=== PATIENT | female | born 1965 | race Caucasian/White ===

== ENCOUNTER → 2022-06-15 | Outpatient (CLI) | payer MEDICAID, SELFPAY ==
[2022-06-15 11:29] LABS: Amphetamine Urine VISTA NEGATIVE (<1000 ng/mL); Barbiturate Urine VISTA NEGATIVE (< 200 ng/mL); Benzodiazepine Urine VISTA NEGATIVE (< 200 ng/mL); Cocaine Urine VISTA NEGATIVE (< 300 ng/mL); Ecstacy Urine VISTA POSITIVE (< 500 ng/mL); Methadone Urine VISTA NEGATIVE (< 300 ng/mL); PCP Urine VISTA NEGATIVE (< 25 ng/mL); THC Urine VISTA NEGATIVE (< 50 ng/mL); Vista UDS pH Range 5
== END | disposition home or self-care (01) ==
LOC: LAB 09:50
PROVIDERS: Visit Provider Anesthesiology Pain Medicine
DX: F11.20 Opioid dependence, uncomplicated (principal)
CPT/HCPCS: 80307

== ENCOUNTER 2022-09-02 13:30 | Outpatient (RCR) | payer MEDICAID, SELFPAY ==
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
--- NOTE | 2022-10-12 14:12 | HP.PT.NRP ---
VLADISLAV SANTIZO was seen in my office for initial evaluation on 08/24/22. The following Plan of Care was established for this patient: Initial Frequency: 2-3x /Week Initial Duration: 4-6 Weeks Patient/Client Instruction: Educate patient on: Condition, Plan of Care, Risk Factors For the Purpose of:: To improve self management Therapeutic Exercise to Include: Strength training, Body mechanics, Postural training, Flexibilty training, Neuromotor development, In an aquatic setting, Dynamic Lumbar Stabilization For the Purpose of:: To decrease pain, To increase ROM, To improve muscle performance and motor function, To increase tolerance to activity/condition/position, To improve ability of physical actions for home/community/work/leisure This patient was last seen in our office . Pertinent comments regarding their Physical therapy will appear below: This patient has not returned to Physical Therapy and is appropriate to return to MD for further follow-up as needed. At this point I will be discontinuing this patient from physical therapy. I would be happy to see this patient again in the future if found appropriate by the physician. Thank you! Snow Potter, PT, Cert MDT Balance/Gait/Functional tests - Balance/Special Test Scores Oswestry Low Back Score: 29
== END 2022-09-02 19:00 | disposition home or self-care (01) ==
LOC: PT 13:30
PROVIDERS: Referring Provider Anesthesiology Pain Medicine; Visit Provider Anesthesiology Pain Medicine
DX: M47.816 Spondylosis without myelopathy or radiculopathy, lumbar region (principal); G89.29 Other chronic pain; M54.6 Pain in thoracic spine
CPT/HCPCS: 97113; 97162

== ENCOUNTER 2023-05-11 21:13 | Emergency (ER) | payer MEDICARE, MEDICAID, SELFPAY ==
[2023-05-11 21:16] VITALS: BP 141/99; PULSE 79; RESP 18; TEMP 36.1; O2SAT 99; BMI 25.2
--- NOTE | 2023-05-11 21:57 | EX.ED.DYSGE1 ---
HPI History of Present Illness Chief Complaint: Hypertension Informant: patient Narrative Narrative: Patient presents with concern for high blood pressure. She evidently was at her GYNs office the other day. Blood pressure is up. She was told she should come to the emergency department. It was evidently about 185 systolic. Blood pressures about 185 at home again this evening. She states when her blood pressure is up she feels like a pressure feeling in her neck and head but is not pain. She did take her lisinopril tonight. Blood pressure is now coming down. She normally takes her lisinopril in the evening. She is also concerned that she may be having complications from her multiple medications but she is on much fewer meds now than she was in the past. Patient has a history of migraines and muscle and back pains. She also has history of high blood pressure. Patient takes pregabalin, baclofen, propanolol, lisinopril 10 mg, Nurtec and rizatriptan for migraines, vitamins PFSH PFS Medical History (Updated 05/11/23 @ 22:[address] Rikcy Byrd MD) Hypertension Migraines Allergy/AdvReac Type Severity Reaction Status Date / Time latex Allergy Other Verified 05/11/23 21:15 lamotrigine AdvReac Other Verified 05/11/23 21:15 [id number] Reductase AdvReac Nausea Verified 05/11/23 21:15 Inhibitor SSRI AdvReac Other Uncoded 05/11/23 21:15 Social History Smoking Status: Former smoker ROS ROS ED Constitutional Constitutional ED: Denies chills, fever(s) or sweats Eyes Eyes: Denies blurry vision, change in vision or diplopia ENT ENT ED: Denies ear pain or sore throat Cardiovascular Cardiovascular: Denies chest pain or palpitations Respiratory/Chest Respiratory/Chest: Denies cough or dyspnea Gastrointestinal Gastrointestinal: Denies nausea or vomiting Genitourinary Genitourinary ED: Denies dysuria or hematuria Musculoskeletal Musculoskeletal: Denies myalgias Integumentary Denies rash Neurologic Neurologic: Denies headache(s), paresthesias or weakness Hematologic/Lymphatic Hematologic/Lymphatic: Denies easy bleeding or easy bruising Allergic/Immunologic Allergic/Immunologic ED: Denies urticaria EXAM Physical Exam Narrative Exam Narrative: CONSTITUTIONAL: Patient is nontoxic in appearance. The patient looks comfortable. Work of breathing looks normal. HEENT: No notable trauma. Mucous membranes moist. No sinus tenderness. No indication of pain with swallowing. EYES: No conjunctival injection. No proptosis. No photophobia. Range of motion is normal. NECK:No JVD. No stridor. CARDIOVASCULAR: Regular rate. Regular rhythm. No notable murmur. No JVD. No muffled tones. Peripheral pulses are normal and equal RESPIRATORY: No respiratory distress. Breathing is unlabored. No wheezes. No rhonchi. No rales. No pain with a deep breath. GASTROINTESTINAL: Not distended. Bowel sounds are normal. No tenderness. GENITOURINARY: No tenderness over the bladder. No CVA tenderness. MUSCULOSKELETAL: Atraumatic. No peripheral edema. NEUROLOGICAL: Patient is alert and appropriate. No focal deficit noted. SKIN: No noted rashes. No diaphoresis. PSYCHIATRIC: Patient is calm. Mood is appropriate. Const Vital Signs: 05/11/23 21:16 05/11/23 22:10 Temperature 96.9 F L Temperature Source Temporal Pulse Rate 79 78 Respiratory Rate 18 16 Blood Pressure 141/99 H 131/91 H Blood Pressure Mean 113 104 Pulse Ox 99 Oxygen Delivery Method Room Air MDM MDM MDM Narrative Medical decision making narrative: Patient had blood pressure rechecked here. She was 141/99 when she came in. While I was in the room she was 135/92 then 127/90 then 131/91. I do not feel that any of these blood pressure readings require acute treatment. We did talk about timing of lisinopril. We explained that this medicine generally has blood pressure effects that last a little bit less than 24 hours. Since she takes her meds in the evening she likely will have a rise of blood pressure before she takes the meds. She admits that she has been getting that. She can take the med in the morning. That way before she wakes up her blood pressure may be up a little bit but normally blood pressure is down at that time so her lisinopril should be more effective throughout the day. She was encouraged to see her primary physician for overall review and management of medicines. I do not think she needs a change in dose now. She did request a physician closer to this area as she has moved here. I do not think blood work is needed as she has essentially asymptomatic hypertension but her blood pressure levels are not notably elevated now. I do not think any imaging would be effective or needed. Discharge Plan Triage Chief Complaint: Hypertension ED Provider: Ricky Byrd Dx/Rx/DC Orders Clinical Impression: Elevated blood pressure reading Instructions: ED High Blood Pressure Hypertension Primary Care Provider: RICKY SANDOVAL Referrals: Rafy Weaver MD [Med Staff - Active Staff] - 1 Week [facility] Doctor,Out of [Non-Staff] - Disposition Disposition: Home, Self Care Discharge Date/Time: 05/11/23 22:11
[2023-05-11 22:10] VITALS: BP 131/91; PULSE 78; RESP 16
== END 2023-05-11 22:11 | disposition home or self-care (01) ==
LOC: ED 22:05
PROVIDERS: Emergency Provider Emergency Medicine; Visit Provider Emergency Medicine
DX: G43.909 Migraine, unspecified, not intractable, without status migrainosus (principal); I10 Essential (primary) hypertension; Z79.899 Other long term (current) drug therapy; Z87.891 Personal history of nicotine dependence
CPT/HCPCS: 99282

== ENCOUNTER → 2023-12-10 | Outpatient (CLI) | payer MEDICARE, MEDICAID, SELFPAY ==
--- NOTE | 2023-12-10 13:44 | US_ITS ---
STUDY: ULTRASOUND BREAST - LEFT REASON FOR EXAM: Female, 58 years old. Palpable lump at the level of the left scar tissue. TECHNIQUE: Axial and longitudinal images of the LEFT breast were performed with a high resolution ultrasound transducer. # OF IMAGES: 14 COMPARISON: Comparison is made with prior mammogram done earlier today. FINDINGS: LEFT Breast: The upper inner quadrant of the breast was examined with ultrasound. There is heterogeneous fibroglandular tissue. No sonographic abnormality is seen. US/Breast Limited Unilateral IMPRESSION: No sonographic abnormality is seen. ASSESSMENT CATEGORY: BIRADS Category 2: Benign. A letter regarding these results will be sent to the patient by the facility within 30 days. Electronically Signed: Bruno Kellogg MD at 15:22 EST ,
--- NOTE | 2023-12-10 13:44 | BI_ITS ---
MAMMOGRAPHY - BILATERAL DIAGNOSTIC REASON FOR EXAM: Female, 58 years old. Palpable lump in the upper outer aspect of the left breast. PERTINENT HISTORY: Aunt with breast cancer. Remote left excisional breast biopsy. TECHNIQUE: Digital bilateral breast rl (3D mammographic acquisition) in the CC and MLO projections. 2-D mediolateral oblique (MLO) and craniocaudad (CC) views of both breasts were obtained. CAD: Full Field Digital Mammography with Computer Added Detection was performed. COMPARISON: Comparison is made with prior study dated May 08, 2016. FINDINGS: Breast Composition: The breasts are heterogeneously dense, which may obscure small masses. There are no dominant masses or suspicious calcifications. Stable small bilateral axillary lymph nodes. No other significant abnormalities are identified. There has been no significant change since the prior study. BI/DIAG MAMM W/CAD, BILAT IMPRESSION: Stable bilateral diagnostic mammogram. With the patient''s history of a palpable lump in the upper-outer aspect of the left breast, correlation with ultrasound is recommended. ASSESSMENT CATEGORY: BIRADS Category 0: Incomplete. Need additional imaging evaluation. A letter regarding these results will be sent to the patient by the facility within 30 days. Approximately 10% of breast cancers are not detected by mammography. A normal mammogram should not delay biopsy of a clinically suspicious abnormality. Electronically Signed: Bruno Kellogg MD at 14:26 EST ,
== END | disposition home or self-care (01) ==
DX: N63.21 Unspecified lump in the left breast, upper outer quadrant (principal)
CPT/HCPCS: 76642; 77062; 77066; G0279

== ENCOUNTER 2024-12-24 13:45 | Emergency (ER) | payer MEDICARE, MEDICAID, SELFPAY ==
[2024-12-24 13:47] VITALS: BP 103/75; PULSE 97; RESP 20; TEMP 35.7; O2SAT 98; BMI 22.8
--- NOTE | 2024-12-24 14:40 | RAD_ITS ---
PROCEDURE: CHEST PA AND LATERAL REASON FOR EXAM: Cough TECHNIQUE: Frontal and lateral views of the chest. COMPARISON: None. FINDINGS: The heart size is normal. The mediastinal contour is unremarkable. The lungs are clear. Vertebroplasty changes. RAD/Chest PA and Lateral IMPRESSION: NEGATIVE CHEST Reading Location: [facility]
--- NOTE | 2024-12-24 14:41 | EX.ED.DYSGE1 ---
HPI <SHEEBA Guzman - Last Filed: 12/24/24 16:53> History of Present Illness Chief Complaint: Cold Sx Narrative Narrative: Patient presenting today due to an episode of hemoptysis that occurred this morning. She reports that 3 weeks ago she was diagnosed with influenza A. She has had a productive cough since with green-colored sputum. Today, she coughed and noticed blood in her sputum prompting her to come in for evaluation. She reports a previous history of tobacco use but has not smoked in over 20 years. She reports pain to her bilateral pectoral muscles with coughing, she reports that this is improved with rest. She denies fevers, chills, and shortness of breath. She denies history of blood clots or recent surgery/travel/immobilization. She is not on any blood thinners. PFSH <SHEEBA Guzman - Last Filed: 12/24/24 16:53> PFSH Medical History Migraines Hypertension Allergy/AdvReac Type Severity Reaction Status Date / Time latex Allergy Other Verified 12/24/24 13:49 lamotrigine AdvReac Other Verified 12/24/24 13:49 [id number]-[id number] Reductase AdvReac Nausea Verified 12/24/24 13:49 Inhibitor SSRI AdvReac Other Uncoded 05/11/23 21:15 Social History Smoking Status: Former smoker ROS <SHEEBA Guzman - Last Filed: 12/24/24 16:53> ROS ED Constitutional Constitutional ED: Denies chills or fever(s) Cardiovascular Cardiovascular: Denies chest pain or palpitations Respiratory/Chest Respiratory/Chest: Reports cough and sputum; Denies dyspnea, tachypnea or wheezing Gastrointestinal Gastrointestinal: Denies abdominal pain, nausea or vomiting Musculoskeletal Musculoskeletal: Denies arthralgias or myalgias Integumentary Denies rash Neurologic Neurologic: Denies weakness EXAM <SHEEBA Guzman - Last Filed: 12/24/24 16:53> Physical Exam Const Vital Signs: 12/24/24 13:47 12/24/24 14:49 12/24/24 14:49 Temperature 96.3 F L 96.3 F L Temperature Source Temporal Temporal Pulse Rate 97 97 Respiratory Rate 20 H 20 H Respiratory Effort Normal Respiratory Pattern Normal Blood Pressure 103/75 103/75 Blood Pressure Mean 84 84 Pulse Ox 98 98 Oxygen Delivery Method Room Air Room Air 12/24/24 15:44 Temperature Temperature Source Pulse Rate 71 Respiratory Rate 18 Respiratory Effort Respiratory Pattern Blood Pressure Blood Pressure Mean Pulse Ox 98 Oxygen Delivery Method Room Air Positive well nourished, well developed and no apparent distress General Appearance ED: well developed HEENT Reports normocephalic and head/scalp atraumatic Mouth ED: Yes moist mucous membranes normal Eyes PERRL and EOMs intact bilaterally Neck full ROM and supple Chest Wall inspection of chest normal Chest Narrative: Tenderness to the bilateral pectoral muscles. No overlying rash or bruising. Resp normal respiratory effort and clear to auscultation bilaterally Cardio regular rate and regular rhythm GI soft to palpation, non-tender, non-distended and no masses Back/Spine normal ROM and normal to inspection Extremity normal to inspection and full ROM Neuro oriented x3, CN's II-XII intact bilaterally, moves all extremities, no focal motor deficits and no sensory deficits noted Sensorium / Orientation: awake and alert Psych mental status grossly normal and thought process normal Skin no rashes or lesions noted and no wounds <Dr. Oswaldo Noland MD - Last Filed: 12/24/24 16:40> Physical Exam Const Vital Signs: 12/24/24 13:47 12/24/24 14:49 12/24/24 14:49 Temperature 96.3 F L 96.3 F L Temperature Source Temporal Temporal Pulse Rate 97 97 Respiratory Rate 20 H 20 H Respiratory Effort Normal Respiratory Pattern Normal Blood Pressure 103/75 103/75 Blood Pressure Mean 84 84 Pulse Ox 98 98 Oxygen Delivery Method Room Air Room Air 12/24/24 15:44 Temperature Temperature Source Pulse Rate 71 Respiratory Rate 18 Respiratory Effort Respiratory Pattern Blood Pressure Blood Pressure Mean Pulse Ox 98 Oxygen Delivery Method Room Air MDM <SEHEBA Guzman - Last Filed: 12/24/24 16:53> [facility] Narrative Medical decision making narrative: Patient presenting due to an episode of hemoptysis that occurred this afternoon. She has been coughing for 3 weeks after being diagnosed with influenza A. No history of blood clots or significant risk factors. Oxygen saturation 98% on room air. She is not short of breath. She is not complaining of chest pain. She does have chest wall pain to her pectoral muscles with coughing that is improved with rest and reproducible to palpation. Chest x-ray was obtained and is negative for infiltrate another cardiopulmonary abnormality. She already was given a course of antibiotics and steroids, I do not feel further antibiotics are indicated. She has a low Wells score, low suspicion for PE. Recommended that she follow-up with her PCP in the next 5 to 7 days. Strict return instructions were discussed if she has any further or worsening hemoptysis. She will be discharged home in stable condition. I have personally performed a face to face assessment of the patient and have reviewed the ANSLEY Note. I performed a substantive portion of the visit including all aspects of the following. My araiza findings include: History is [59-year-old female history of influenza 2 to 3 weeks ago. Has had persistent cough. No chest pain. Previously was treated with antibiotics.] Exam is [well-appearing 59-year-old female. Vital signs stable afebrile. Pulse ox 90% on room air no hypoxia. No respiratory distress. H EENT exam pupils round react to light. Moist mucous membranes. Neck nontender no JVD. No lymphadenopathy. Lungs clear to auscultation bilaterally. No rales rhonchi or wheezing. Equal symmetric. Good breath volume. Heart regular rhythm rate about 70 no murmur. Chest wall ribs nontender. Abdomen soft nontender. Moving all 4 extremities. Calves nontender without edema or cords. Neurologically she is awake and alert no focal motor deficits. Back nontender.] Medical Decision Making [59-year-old female recent influenza with recurrent cough. Chest x-ray is negative.] Other additions or changes: [Discussion with patient and family they are comfortable being discharged home. She is already been on antibiotics and steroids. She is not wheezing. She does not need another antibiotic they are comfortable the plan] Radiography X-Ray: Read by ED Physician Diagnostic Testing: Clinical Impression(s) from Imaging Studies Chest X-Ray 12/24/24 14:40 IMPRESSION: NEGATIVE CHEST Reading Location: [facility] <Dr. Oswaldo Noland MD - Last Filed: 12/24/24 16:40> [facility] Narrative Medical decision making narrative: Patient presenting due to an episode of hemoptysis that occurred this afternoon. She has been coughing for 3 weeks after being diagnosed with influenza A. No history of blood clots or significant risk factors. Oxygen saturation 98% on room air. She is not short of breath. She is not complaining of chest pain. She does have chest wall pain to her pectoral muscles with coughing that is improved with rest and reproducible to palpation. I have personally performed a face to face assessment of the patient and have reviewed the ANS[facility] Note. I performed a substantive portion of the visit including all aspects of the following. My araiza findings include: History is [59-year-old female history of influenza 2 to 3 weeks ago. Has had persistent cough. No chest pain. Previously was treated with antibiotics.] Exam is [well-appearing 59-year-old female. Vital signs stable afebrile. Pulse ox 90% on room air no hypoxia. No respiratory distress. H EENT exam pupils round react to light. Moist mucous membranes. Neck nontender no JVD. No lymphadenopathy. Lungs clear to auscultation bilaterally. No rales rhonchi or wheezing. Equal symmetric. Good breath volume. Heart regular rhythm rate about 70 no murmur. Chest wall ribs nontender. Abdomen soft nontender. Moving all 4 extremities. Calves nontender without edema or cords. Neurologically she is awake and alert no focal motor deficits. Back nontender.] Medical Decision Making [59-year-old female recent influenza with recurrent cough. Chest x-ray is negative.] Other additions or changes: [Discussion with patient and family they are comfortable being discharged home. She is already been on antibiotics and steroids. She is not wheezing. She does not need another antibiotic they are comfortable the plan] History & Record Review Discussion w/independent historian: Patient Radiography Chest X-Ray - ED: 2 View, Read by ED Physician, Heart, Lungs, Mediastinum, Bony Structures, No Acute Disease and Chronic Changes Diagnostic Testing: Clinical Impression(s) from Imaging Studies Chest X-Ray 12/24/24 14:40 IMPRESSION: NEGATIVE CHEST Reading Location: [facility] Chest x-ray, 2 views, AP and lateral, interpreted myself and radiology shows no acute abnormality. Chronic changes. Prior thoracic vertebroplasty. No pneumonia. No effusion. Discharge Plan Triage Chief Complaint: Cold Sx ED Midlevel Provider: Paris Donaldson ED Provider: Oswaldo Noland Dx/Rx/DC Orders Clinical Impression: Viral URI Instructions: ED Hemoptysis, ED URI, Viral, No Abx (Adult) Primary Care Provider: RICKY SANDOVAL MD Referrals: NOT,DEFINED [Non-Staff] - Activity Restrictions/Additional Instructions: Please return for any worsening of your symptoms. Follow-up with your PCP in the next 5 to 7 days. Print Language: Frisian Disposition Disposition: Home, Self Care Discharge Date/Time: 12/24/24 16:49
[2024-12-24 14:49] VITALS: BP 103/75; PULSE 97; RESP 20; TEMP 35.7; O2SAT 98
[2024-12-24 15:44] VITALS: PULSE 71; RESP 18; O2SAT 98
== END 2024-12-24 16:49 | disposition home or self-care (01) ==
PROVIDERS: Emergency Provider Emergency Medicine; Visit Provider Emergency Medicine
DX: J06.9 Acute upper respiratory infection, unspecified (principal); R04.2 Hemoptysis; I10 Essential (primary) hypertension; Z87.891 Personal history of nicotine dependence
CPT/HCPCS: 71046; 99282

== ENCOUNTER 2025-01-19 14:42 | Emergency (ER) | payer MEDICARE, MEDICAID, SELFPAY ==
[2025-01-19 14:43] VITALS: BP 123/84; PULSE 81; RESP 15; TEMP 36.4; O2SAT 100; BMI 23.3
[2025-01-19 14:46] VITALS: BP 128/84; PULSE 81; RESP 15; TEMP 36.4; O2SAT 100
--- NOTE | 2025-01-19 15:58 | US_ITS ---
PROCEDURE: TRANSVAGINAL NON- REASON FOR EXAM: postmenopausal vag bleeding TECHNIQUE: Grayscale and color doppler transvaginal pelvic ultrasound was performed. COMPARISON: None FINDINGS: Uterus: 7.2 x 3.4 x 2.6 cm, Anteverted. Heterogeneous myometrium with scattered suspected calcifications which could be vascular. Endometrium: 4-6 mm. No focal lesions identified. Cervix: Unremarkable. Right ovary: Not visualized. Left ovary: Not visualized. Free fluid: None visualized. Other: None. US/Transvaginal Non- IMPRESSION: 1. Mild endometrial thickening for a postmenopausal female in the setting of po stmenopausal bleeding. Recommend outpatient OBGYN consultation and tissue sampling to exclude neoplasia. 2. Nonvisualized bilateral ovaries. 3. Additional description as above. Reading Location: [id number]
[2025-01-19 16:28] LABS: Absolute Lymphocyte Count 1.88 X10^3/uL (0.83-4.51); Absolute Neutrophil Count 7.7 X10^3/uL (2.0-7.7); Basophil# 0.05 X10^3/uL; Basophil% 0.5 % (0-1); Eosinophil# 0.19 X10^3/uL; Eosinophils% 1.8 % (0-5); Hematocrit 43.6 % (37-47); Hemoglobin 14.6 g/dL (12.0-15.0); Lymphocyte # 1.88 X10^3/ul (0.83-4.51); Lymphocyte % 17.9 % (19-41); Mean Corp Hgb Conc 33.5 g/dL (32-36); Mean Corpuscular Hgb 30.2 pg (27.0-32.0); Mean Corpuscular Volume 90.3 fL (81-99); Mean Platelet Vol. 10.4 fl (6.2-12.0); Monocyte# 0.65 X10^3/uL; Monocyte% 6.2 % (0-10); NRBC Flagged by Analyzer 0.2 % (0-5); Neutrophil # 7.68 X10^3/uL (2.7-7.7); Neutrophil % 73.1 % (47-70); Platelet Count 265 K/mm3 (150-450); RBC Distribution Width SD 42.6 fl (35.1-43.9); Red Blood Count 4.83 M/mm3 (4.2-5.4); White Blood Count 10.5 K/mm3 (4.4-11.0)
[2025-01-19 16:43] VITALS: BP 118/89; PULSE 78; RESP 16; O2SAT 98
--- NOTE | 2025-01-19 17:34 | EDS_ITS ---
HPI HPI - Female History of Present Illness Chief Complaint: Vag Bleeding Narrative Narrative: Vaginal spotting for the past week and reports seem to have bleeding similar to a period today. She is postmenopausal 10 years. She states she has seen Dr. Min. She is a 3 to 4 years lower pelvic pain. Denies history of ovarian cysts or fibroids. She been dealing with recent infections. Got over influenza and bronchitis. Send multiple UTIs. Complaining urine frequency and suprapubic discomfort. She thought she had blood in her urine. She was on antibiotics a week ago just went back to express care today and placed back on antibiotics. She states culture grew out Klebsiella. Reviewed her phone culture from 2 days ago with Klebsiella however noted tended less than 50,000. Denies dysuria. Denies fevers or back pain. [facility] Medical History Migraines Hypertension Allergy/AdvReac Type Severity Reaction Status Date / Time latex Allergy Other Verified 12/24/24 13:49 lamotrigine AdvReac Other Verified 12/24/24 13:49 [id number] Reductase AdvReac Nausea Verified 12/24/24 13:49 Inhibitor SSRI AdvReac Other Uncoded 05/11/23 21:15 Social History household members: spouse housing: house Smoking Status: Former smoker ROS ROS ED Constitutional Constitutional ED: Denies chills, fever(s) or sweats ENT ENT ED: Denies sore throat Cardiovascular Cardiovascular: Denies chest pain, leg edema, palpitations or racing heartbeat Respiratory/Chest Respiratory/Chest: Denies cough, dyspnea or dyspnea on exertion Gastrointestinal Gastrointestinal: Denies abdominal pain, diarrhea, nausea or vomiting Genitourinary Genitourinary ED: Reports other Details: Vaginal bleeding ; Denies dysuria, hematuria or urinary frequency Musculoskeletal Musculoskeletal: Denies back pain, extremity pain or neck pain Integumentary Denies rash or wounds Neurologic Neurologic: Denies headache(s), paresthesias or weakness EXAM Physical Exam Const Vital Signs: 01/19/25 14:43 01/19/25 14:46 01/19/25 16:43 Temperature 97.6 F L 97.6 F L Temperature Source Temporal Temporal Pulse Rate 81 81 78 Respiratory Rate 15 15 16 Blood Pressure 123/84 H 128/84 H 118/89 H Blood Pressure Mean 97 98 98 Pulse Ox 100 100 98 Oxygen Delivery Method Room Air Room Air 01/19/25 17:38 Temperature 98.3 F Temperature Source Pulse Rate 74 Respiratory Rate 16 Blood Pressure 110/77 Blood Pressure Mean 88 Pulse Ox 100 Oxygen Delivery Method Positive well nourished and well developed General Appearance ED: well developed and NAD HEENT Reports moist mucous membranes normocephalic and atraumatic Eyes General Eye ED: Yes normal appearance of both eyes Neck full ROM Chest Wall Chest: Negative for tenderness Resp normal respiratory effort and normal air movement Effort and Inspection: symmetric chest movement; Negative for respiratory distress Cardio regular rate, regular rhythm and no murmurs Peripheral Pulses: pulses 2+ throughout GI normal to inspection, nondistended, normoactive bowel sounds and non-tender Palpation: Negative for guarding or rebound tenderness present Narrative: Pelvic exam with 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 Speculum examination normal cervix no vaginal injuries there is mild blood in the vault. No active bleeding noted. Extremity normal to inspection General Extremety ED: Negative for edema or tenderness General Extremity: Negative for edema Neuro oriented x3 and no sensory deficits noted Sensorium / Orientation: awake and alert Skin no rashes or lesions noted and no wounds MDM MDM MDM Narrative Medical decision making narrative: Interventions / MDM: Differential diagnosis: Postmenopausal bleeding, thickened endometrium Diagnosis considered but do not suspect: N/A My EKG interpretation: N/A Imaging independently reviewed and interpreted by myself: Pelvic ultrasound: Thickened endometrium 4-6 mm. No other acute findings. External documents reviewed: N/A Test considered but not ordered:N/A ED course: External exam no masses. Mild blood coming from cervical os. Patient had CBC sent, transvaginal ultrasound ordered for further evaluation. Mild thickening endometrium per radiology. Hemoglobin 14.6. 1730: I spoke with her product design specialist Dr. Min, reports with mild thickening she is very low risk. She has reassurance and follow-up with the office for further testing. This was relayed to the patient. All questions were answered. Re-evaluation: stable Disposition discussed with patient/family/significant other: Patient and family Case discussed with consulting clinician: Gynecology This note was generated with [employer] software. It may contain incorrect words, spelling, and punctuation that were not noted in checking the note before signing. Lab Data Attestation: I reviewed the patient's lab results. Labs: Laboratory Results - last 24 hr 01/19/25 16:12 WBC 10.5 RBC 4.83 Hgb 14.6 Hct 43.6 MCV 90.3 MCH 30.2 MCHC 33.5 RDW Std Deviation 42.6 RDW Coeff of Hortensia 13.0 Plt Count 265 MPV 10.4 Immature Gran % (Auto) 0.500 Neut % (Auto) 73.1 H Lymph % (Auto) 17.9 L Sampson % (Auto) 6.2 Eos % (Auto) 1.8 Baso % (Auto) 0.5 Absolute Neuts (auto) 7.7 Absolute Lymphs (auto) 1.88 Nucleated RBC % 0.2 Radiography Diagnostic Testing: Clinical Impression(s) from Imaging Studies Transvaginal US 01/19/25 15:58 IMPRESSION: 1. Mild endometrial thickening for a postmenopausal female in the setting of postmenopausal bleeding. Recommend outpatient OBGYN consultation and tissue sampling to exclude neoplasia. 2. Nonvisualized bilateral ovaries. 3. Additional description as above. Reading Location: [facility] Discharge Plan Triage Chief Complaint: Vag Bleeding ED Provider: Perez Oneill Dx/Rx/DC Orders Clinical Impression: Post-menopausal bleeding, Thickened endometrium Instructions: ED Dysfunctional Uterine Bleeding Primary Care Provider: RICKY SANDOVAL MD Referrals: RICKY SANDOVAL MD [Other] Margi Min MD [Med Staff - Active Staff] - 1-2 Weeks Activity Restrictions/Additional Instructions: Endometrium 4 to [address] Min. Called office on Wednesday to be seen in the office next couple weeks. Monitor bleeding. Low risk concerns. Print Language: Bel[place]ian Disposition Disposition: Home, Self Care Discharge Date/Time: 01/19/25 17:42
[2025-01-19 17:38] VITALS: BP 110/77; PULSE 74; RESP 16; TEMP 36.8; O2SAT 100
== END 2025-01-19 17:42 | disposition home or self-care (01) ==
PROVIDERS: Emergency Provider Emergency Medicine; Referring Provider Emergency Medicine; Visit Provider Emergency Medicine
DX: N95.0 Postmenopausal bleeding (principal); R93.89 Abnormal findings on diagnostic imaging of other specified body structures; I10 Essential (primary) hypertension; Z87.891 Personal history of nicotine dependence
CPT/HCPCS: 76830; 85025; 99283; A4216